=== PATIENT | male | born 1980 | race Caucasian/White ===

== ENCOUNTER 2017-11-27 11:46 | Inpatient (IN) | payer OTHER ==
[~2017-11-27] VITALS: Ht 180.3 cm; Wt 79.1 kg
[2017-11-27 11:55] VITALS: BP 129/82; PULSE 81; RESP 18; O2SAT 98
[2017-11-27] MEDS ORDERED: MIRTA15 PO (12:11)
[2017-11-27] MEDS ORDERED: BUSP10TA PO (12:11)
[2017-11-27] MEDS ORDERED: IBUP-232 PO (12:11)
[2017-11-27] MEDS ORDERED: CLON0.2T PO (12:11)
--- NOTE | 2017-11-27 12:13 | PD ---
HPI . Mandible fracture Chief Complaint: Oral / Dental Pain or Problem Time Seen by Provider: 11:53 Travel History International Travel<30 days: No Contact w/Intl Traveler<30days: No Traveled to known affect area: No History of Present Illness HPI This patient presents to us from the [facility] with a known mandibular fracture. He reports a trip and fall 3 days ago. He was seen in the intermediate and had plain films done. The plain films show a mandibular fracture. He was subsequently sent to us for further evaluation and treatment. The officers from intermediate report that they normally bring their patients to us for definitive care. The patient denies any loss of consciousness. He does complain with headache and neck pain. He also states that he had blood from his left ear at the time of the injury. He rates his pain 7/10 and states that it is exacerbated by trying to open his mouth. PFSH Past Medical History Diminished Hearing: No Kidney Stones: Yes Immunizations Current: Yes Tetanus Vaccination: Unknown Influenza Vaccination: No Past Surgical History Surgical History: No Previous Surgery Social History Alcohol Use: No (NOT IN A LONG TIME ) Tobacco Use: No (QUIT 65 DAYS AGO ) Substance Use: No (DENIES ) Allergies-Medications (Allergen,Severity, Reaction): Coded Allergies: No Known Drug Allergies (Verified Allergy, Unknown, 11/27/17) Reported Meds & Prescriptions Reported Meds & Active Scripts Active Reported Ibuprofen 600 Mg Tab 600 Mg PO BID PRN Mirtazapine 15 Mg Tab 15 Mg PO DAILY Clonidine (Clonidine HCl) 0.2 Mg Tab 0.2 Mg PO DAILY Buspirone (Buspirone HCl) 10 Mg Tab 10 Mg PO BID Review of Systems Except as stated in HPI: all other systems reviewed are Neg Physical Exam Narrative GENERAL: Awake and alert and in no acute distress. SKIN: Warm and dry. HEAD: Normocephalic. There is swelling to the left side of his face. EYES: Pupils are equal. Extraocular movements are intact. ENT: No blood or CSF in the left EAC. NECK: Normal range of motion. Diffuse tenderness. CARDIOVASCULAR: Regular rate and rhythm. RESPIRATORY: Nonlabored respirations. MUSCULOSKELETAL: Atraumatic. NEUROLOGICAL: Nonfocal. PSYCHIATRIC: Appropriate mood and affect. Data Data Last Documented VS Vital Signs Date Time Temp Pulse Resp B/P (MAP) Pulse Ox O2 Delivery O2 Flow Rate FiO2 11/27/17 11:55 81 18 129/82 (98) [address] Brain W/O Iv Contrast(Rout) (11/27/17 11:58) Ct Cerv Spine W/O Contrast (11/27/17 11:58) Ct Facial Bones W/O Iv Cont (11/27/17 11:58) Electrocardiogram (11/27/17 ) Basic Metabolic Panel (Bmp) (11/27/17 12:13) Complete Blood Count With Diff (11/27/17 12:13) Act Partial Throm Time (Ptt) (11/27/17 12:13) Prothrombin Time / Inr (Pt) (11/27/17 12:13) Urinalysis - C+S If Indicated (11/27/17 12:13) Chest, Pa & Lat (11/27/17 12:13) Consult Oral, Facial Surgery (11/27/17 ) (Hub Use Only)Inp Phy Cons/Ref (11/27/17 ) Labs Laboratory Tests Test 11/27/17 13:05 11/27/17 14:00 White Blood Count 10.1 TH/MM3 Red Blood Count 4.85 MIL/MM3 Hemoglobin 14.4 GM/DL Hematocrit 42.4 % Mean Corpuscular Volume 87.4 FL Mean Corpuscular Hemoglobin 29.7 PG Mean Corpuscular Hemoglobin Concent 33.9 % Red Cell Distribution Width 14.0 % Platelet Count 217 TH/MM3 Mean Platelet Volume 7.9 FL Neutrophils (%) (Auto) 60.4 % Lymphocytes (%) (Auto) 28.3 % Monocytes (%) (Auto) 9.9 % Eosinophils (%) (Auto) 1.2 % Basophils (%) (Auto) 0.2 % Neutrophils # (Auto) 6.1 TH/MM3 Lymphocytes # (Auto) 2.9 TH/MM3 Monocytes # (Auto) 1.0 TH/MM3 Eosinophils # (Auto) 0.1 TH/MM3 Basophils # (Auto) 0.0 TH/MM3 CBC Comment DIFF FINAL Differential Comment Prothrombin Time 10.2 SEC Prothromb Time International Ratio 1.0 RATIO Activated Partial Thromboplast Time 25.2 SEC Blood Urea Nitrogen 7 MG/DL Creatinine 0.83 MG/DL Random Glucose 96 MG/DL Calcium Level 9.0 MG/DL Sodium Level 139 MEQ/L Potassium Level 3.8 MEQ/L Chloride Level 103 MEQ/L Carbon Dioxide Level 29.4 MEQ/L Anion Gap 7 MEQ/L Estimat Glomerular Filtration Rate 104 ML/MIN Urine Color YELLOW Urine Turbidity CLEAR Urine pH 6.0 Urine Specific [place] 1.022 Urine Protein TRACE mg/dL Urine Glucose (UA) NEG mg/dL Urine Ketones NEG mg/dL Urine Occult Blood NEG Urine Nitrite NEG Urine Bilirubin NEG Urine Urobilinogen 2.0 MG/DL Urine Leukocyte Esterase NEG Urine RBC 8 /hpf Urine WBC 4 /hpf Urine Mucus FEW /lpf Microscopic Urinalysis Comment CULT NOT INDICATED MDM Medical Decision Making Medical Screen Exam Complete: Yes Emergency Medical Condition: Yes Differential Diagnosis Differential diagnosis of facial trauma includes but is not limited to soft tissue contusion, abrasions, laceration, nasal fracture, orbital fracture, zygomatic fracture Narrative Course This patient presents from the intermediate with a known left mandibular fracture. I have ordered a CT of his head, face and neck. I anticipate admission to the medicine service with a craniofacial consultation. Last Impressions Chest X-Ray 11/27/17 1213 Signed Impressions: Service Date/Time: Monday, November 27, 2017 13:23 - CONCLUSION: No acute disease. Juancarlos Archibald MD FACR Maxillofacial CT 11/27/17 2200 Signed Impressions: Service Date/Time: Monday, November 27, 2017 12:52 - CONCLUSION: Minimally displaced fractures of the left mandible. Neel Gómez MD Head CT 11/27/17 4126 Signed Impressions: Service Date/Time: Monday, November 27, 2017 12:52 - CONCLUSION: Normal examination for a patient of this age. Alexis Luna MD Cervical Spine CT 11/27/17 2664 Signed Impressions: Service Date/Time: Monday, November 27, 2017 12:52 - CONCLUSION: No acute bony injury in the cervical spine Neel Gómez MD The case was discussed with Dr. De La Vega who will plan to take the patient to the operating room tomorrow. He asked that the patient be made n.p.o. after midnight and that consent be obtained for surgery tomorrow. Physician Communication Physician Communication Dr. De La Vega and Dr. Marlo Solares Diagnosis Primary Impression: Fracture of left mandibular angle Qualified Codes: S02.652A - Fracture of angle of left mandible, initial encounter for closed fracture Admitting Information Admitting Physician Requests: Observation Condition: Stable Antonia Romeo MD November 27, 2017 12:13
--- NOTE | 2017-11-27 13:03 | RADRPT ---
EXAM DATE/TIME: 11/27/2017 12:52 [facility] COMPARISON: No previous studies available for comparison. INDICATIONS : Slip and fall four days ago. RADIATION DOSE: 31.12 CTDIvol (mGy) MEDICAL HISTORY : None SURGICAL HISTORY : None. ENCOUNTER: Initial ACUITY: 4 - 6 days PAIN SCALE: 3/10 LOCATION: cranial TECHNIQUE: Multiple contiguous axial images were obtained of the head. Using automated exposure control and adj ustment of the mA and/or kV according to patient size, radiation dose was kept as low as reasonably a chievable to obtain optimal diagnostic quality images. DICOM format image data is available electro nically for review and comparison. FINDINGS: CEREBRUM: The ventricles are normal for age. No evidence of midline shift, mass lesion, hemorrhage or acute in farction. No extra-axial fluid collections are seen. POSTERIOR FOSSA: The cerebellum and brainstem are intact. The 4th ventricle is midline. The cerebellopontine angle i s unremarkable. EXTRACRANIAL: The visualized portion of the orbits is intact. SKULL: The calvaria is intact. No evidence of skull fracture. CONCLUSION: Normal examination for a patient of this age. Alexis Luna MD on November 27, 2017 at 13:01 Board Certified Radiologist. This report was verified electronically.
[2017-11-27 13:21] LABS: AUTOMATED NEUTROPHIL # 6.1 TH/MM3 (1.8-7.7); BASOPHIL % 0.2 % (0.0-2.0); EOSINOPHIL # 0.1 TH/MM3 (0-0.4); EOSINOPHIL % 1.2 % (0.0-4.0); HEMATOCRIT 42.4 % (39.0-51.0); HEMOGLOBIN 14.4 GM/DL (13.0-17.0); LYMPH % 28.3 % (9.0-44.0); LYMPHOCYTE # 2.9 TH/MM3 (1.0-4.8); MEAN CELL VOLUME 87.4 FL (80.0-100.0); MEAN CORPUSCULAR HEMOGLOBIN 29.7 PG (27.0-34.0); MEAN CORPUSCULAR HGB CONC 33.9 % (32.0-36.0); MEAN PLATELET VOLUME 7.9 FL (7.0-11.0); MONO % 9.9 % (0.0-8.0); NEUT % 60.4 % (16.0-70.0); PLATELET COUNT 217 TH/MM3 (150-450); RED BLOOD COUNT 4.85 MIL/MM3 (4.50-5.90); WHITE BLOOD COUNT 10.1 TH/MM3 (4.0-11.0)
--- NOTE | 2017-11-27 13:25 | RADRPT ---
EXAM DATE/TIME: 11/27/2017 12:52 [facility] COMPARISON: No previous studies available for comparison. INDICATIONS : Trauma, fall four days ago. RADIATION DOSE: 18.20 CTDIvol (mGy) MEDICAL HISTORY : None SURGICAL HISTORY : None. ENCOUNTER: Initial ACUITY: 4 - 6 days PAIN SCALE: 3/10 LOCATION: neck TECHNIQUE: Volumetric scanning of the cervical spine was performed. Multiplanar reconstructions in the sagittal, coronal and oblique axial planes were performed. Using automated exposure control and adjustment o f the mA and/or kV according to patient size, radiation dose was kept as low as reasonably achievable to obtain optimal diagnostic quality images. DICOM format image data is available electronically f or review and comparison. FINDINGS: Cervical spine alignment is satisfactory. There is no evidence of cervical spine fracture. There is s light degenerative change with mild to space narrowing and endplate osteophytes formation at C5-6. No significant bony canal or foraminal compromise is present. There is no evidence of paraspinal hemato ma. There is separation of the tip of the spinous process of T1 from the remainder of the spinous pro cess, however this appears developmental or chronic. CONCLUSION: No acute bony injury in the cervical spine Neel Gómez MD on November 27, 2017 at 13:20 Board Certified Radiologist. This report was verified electronically.
--- NOTE | 2017-11-27 13:29 | RADRPT ---
EXAM DATE/TIME: 11/27/2017 12:52 [facility] COMPARISON: No previous studies available for comparison. INDICATIONS : Trauma, fall four days ago. RADIATION DOSE: 65.11 CTDIvol (mGy) MEDICAL HISTORY : None SURGICAL HISTORY : None. ENCOUNTER: Initial ACUITY: 4 - 6 days PAIN SCORE: 6/10 LOCATION: jaw TECHNIQUE: Volumetric scanning of the facial bones was performed. Using automated exposure control and adjustme nt of the mA and/or kV according to patient size, radiation dose was kept as low as reasonably achiev able to obtain optimal diagnostic quality images. DICOM format image data is available electronicall y for review and comparison. FINDINGS: The visualized skull is intact. The orbits are symmetric and intact. The maxilla is intact throughout . Nasal bone and maxillary spine are intact. The left mandible is fractured with minimally displaced oblique fractures through the left anterior b tim of the mandible and the angled region of the mandible. The right hemimandible is intact. The temp oromandibular joints are intact. CONCLUSION: Minimally displaced fractures of the left mandible. Neel Gómez MD on November 27, 2017 at 13:23 Board Certified Radiologist. This report was verified electronically.
[2017-11-27 13:30] LABS: PROTHROMBIN TIME - PATIENT 10.2 SEC (9.8-11.6)
--- NOTE | 2017-11-27 13:41 | RADRPT ---
EXAM DATE/TIME: 11/27/2017 13:23 [facility] COMPARISON: No previous studies available for comparison. INDICATIONS : Trauma. Fall four days ago. MEDICAL HISTORY : None. SURGICAL HISTORY : None. ENCOUNTER: Initial ACUITY: 4 - 6 days PAIN SCORE: 0/10 LOCATION: Bilateral chest FINDINGS: PA and lateral views of the chest demonstrate the lungs to be symmetrically aerated without evidence of mass, infiltrate or effusion. The cardiomediastinal contours are unremarkable. Osseous structure s are intact. CONCLUSION: No acute disease. Juancarlos Archbiald MD FACR on November 27, 2017 at 13:39 Board Certified Radiologist. This report was verified electronically.
[2017-11-27 13:45] LABS: BICARBONATE 29.4 MEQ/L (21.0-32.0); CREATININE 0.83 MG/DL (0.60-1.30)
[2017-11-27 14:40] LABS: BILIRUBIN, URINE NEG (NEG); BLOOD, URINE NEG (NEG); GLUCOSE,URINE NEG (NEG); KETONE, URINE NEG (NEG); MUCUS URINE FEW /lpf (OCC); NITRITE,URINE NEG (NEG); URINE COLOR YELLOW (YELLW/STRAW); URINE LEUKOCYTE ESTERASE NEG (NEG)
[2017-11-27] MEDS ORDERED: ACETAMINOPHEN 325 MG TAB PO PRN (15:15)
[2017-11-27] MEDS ORDERED: NALOXONE HCL 0.4 MG/ML AMP IV PUSH PRN (15:15)
[2017-11-27] MEDS ORDERED: SODIUM CHLORIDE 0.9% FLUSH 10 ML FLUSH IV FLUSH PRN (15:15)
[2017-11-27] MEDS ORDERED: ONDANSETRON HCL 4 MG/2 ML VIAL IVP PRN (15:15)
[2017-11-27] MEDS ORDERED: SENNOSIDES 8.6 MG TAB PO PRN (15:15)
--- NOTE | 2017-11-27 15:41 | HHI.HP ---
[facility] Primary Care Physician No Primary Care Physician Admission Diagnosis left mandibular fx Diagnoses: (1) Fracture of left mandibular angle Travel History International Travel<30 Days: No Contact w/Intl Traveler <30 Da: No Traveled to Known Affected Are: No History of Present Illness 37-year-old male with history of nephrolithiasis presents to our ER following a slip and fall that occurred 4 days ago. Since then he has had swelling of his left face and a difficult time opening his mouth or chewing. ER workup reveals a fracture of the left mandible with minimal displacement. He states that he was wearing boots which lost traction causing him to slip and fall and he hit his left face onto a shelf with his full body weight on the way down. He denies loss of consciousness but has difficulty remembering specifics surrounding the incident. He denies that anybody attacked him or hit him. Review of Systems Constitutional: DENIES: Fatigue, Fever, Weight gain, Weight loss, Chills Eyes: DENIES: Blurred vision, Diplopia, Eye inflammation, Eye pain, Vision loss Ears, nose, mouth, throat: DENIES: Tinnitus, Hearing loss, Vertigo, Nasal discharge, Oral lesions, Ear Pain Respiratory: DENIES: Apneas, Cough, Snoring, Wheezing, Hemoptysis Cardiovascular: DENIES: Chest pain, Palpitations, Syncope, Dyspnea on Exertion Gastrointestinal: DENIES: Abdominal pain, Black stools, Bloody stools, Constipation, Diarrhea, Nausea, Vomiting Genitourinary: DENIES: Hematuria, Dysuria Musculoskeletal: COMPLAINS OF: Stiffness, Joint Swelling, DENIES: Joint pain, Muscle aches Neurologic: DENIES: Abnormal gait, Headache, Localized weakness, Seizures Psychiatric: DENIES: Anxiety, Confusion, Mood changes, Depression Past Family Social History Past Medical History Nephrolithiasis, deafness Past Surgical History Denies any surgeries Allergies: Coded Allergies: No Known Drug Allergies (Verified Allergy, Unknown, 11/27/17) Family History Denies any significant family history Social History Quit smoking 6 weeks ago, denies alcohol use Physical Exam Vital Signs Vital Signs Date Time Temp Pulse Resp B/P (MAP) Pulse Ox O2 Delivery O2 Flow Rate FiO2 5/7/18 11:55 81 18 129/82 (98) 98 Physical Exam GENERAL: This is a well-nourished, well-developed patient, in no apparent distress. SKIN: No rashes, ecchymoses or lesions. Cool and dry. HEAD: Atraumatic. Normocephalic. No temporal or scalp tenderness. No lacerations. HEENT: Swelling of left mandible with extension to left cheek, no skin trauma, minimal jaw movement (painful). No nasal or occular trauma present. EYES: Pupils equal round and reactive. Extraocular motions intact. No scleral icterus. No injection or drainage. ENT: Nose without bleeding, purulent drainage or septal hematoma. Throat without erythema, tonsillar hypertrophy or exudate. Uvula midline. Airway patent. NECK: Trachea midline. No JVD or lymphadenopathy. Supple, nontender, no meningeal signs. CARDIOVASCULAR: Regular rate and rhythm without murmurs, gallops, or rubs. RESPIRATORY: Clear to auscultation. Breath sounds equal bilaterally. No wheezes , rales, or rhonchi. GASTROINTESTINAL: Abdomen soft, non-tender, nondistended. No hepato-splenomegaly , or palpable masses. No guarding. MUSCULOSKELETAL: Extremities without clubbing, cyanosis, or edema. No joint tenderness, effusion, or edema noted. No calf tenderness. Negative Homans sign bilaterally. NEUROLOGICAL: Awake and alert. Cranial nerves II through XII intact. Motor and sensory grossly within normal limits. Five out of 5 muscle strength in all muscle groups. Normal speech. Laboratory Laboratory Tests Test 11/27/17 13:05 11/27/17 14:00 White Blood Count 10.1 Red Blood Count 4.85 Hemoglobin 14.4 Hematocrit 42.4 Mean Corpuscular Volume 87.4 Mean Corpuscular Hemoglobin 29.7 Mean Corpuscular Hemoglobin Concent 33.9 Red Cell Distribution Width 14.0 Platelet Count 217 Mean Platelet Volume 7.9 Neutrophils (%) (Auto) 60.4 Lymphocytes (%) (Auto) 28.3 Monocytes (%) (Auto) 9.9 Eosinophils (%) (Auto) 1.2 Basophils (%) (Auto) 0.2 Neutrophils # (Auto) 6.1 Lymphocytes # (Auto) 2.9 Monocytes # (Auto) 1.0 Eosinophils # (Auto) 0.1 Basophils # (Auto) 0.0 CBC Comment DIFF FINAL Differential Comment Prothrombin Time 10.2 Prothromb Time International Ratio 1.0 Activated Partial Thromboplast Time 25.2 Blood Urea Nitrogen 7 Creatinine 0.83 Random Glucose 96 Calcium Level 9.0 Sodium Level 139 Potassium Level 3.8 Chloride Level 103 Carbon Dioxide Level 29.4 Anion Gap 7 Estimat Glomerular Filtration Rate 104 Urine Color YELLOW Urine Turbidity CLEAR Urine pH 6.0 Urine Specific [place] 1.022 Urine Protein TRACE Urine Glucose (UA) NEG Urine Ketones NEG Urine Occult Blood NEG Urine Nitrite NEG Urine Bilirubin NEG Urine Urobilinogen 2.0 Urine Leukocyte Esterase NEG Urine RBC 8 Urine WBC 4 Urine Mucus FEW Microscopic Urinalysis Comment CULT NOT INDICATED Result Diagram: 11/27/17 1305 11/27/17 1305 Caprini VTE Risk Assessment Caprini VTE Risk Assessment: No/Low Risk (score <= 1) Caprini Risk Assessment Model Point Value = 1 Point Value = 2 Point Value = 3 Point Value = 5 Age 41-60 Minor surgery BMI > 25 kg/m2 Swollen legs Varicose veins or History of unexplained or recurrent spontaneous Oral contraceptives or hormone replacement Sepsis (< 1 month) Serious lung disease, including pneumonia (< 1 month) Abnormal pulmonary function Acute myocardial infarction Congestive heart failure (< 1 month) History of inflammatory bowel disease Medical patient at bed rest Age 61-74 Arthroscopic surgery Major open surgery (> 45 min) Laparoscopic surgery (> 45 min) Malignancy Confined to bed (> 72 hours) Immobilizing plaster cast Central venous access Age >= 75 History of VTE Family history of VTE Factor V Leiden Prothrombin [id number] Lupus anticoagulant Anticardiolipin antibodies Elevated serum homocysteine Heparin-induced thrombocytopenia Other congenital or acquired thrombophilia Stroke (< 1 month) Elective arthroplasty Hip, pelvis, or leg fracture Acute spinal cord injury (< 1 month) Prophylaxis Regimen Total Risk Factor Score Risk Level Prophylaxis Regimen 0-1 Low Early ambulation 2 Moderate Order ONE of the following: *Sequential Compression Device (SCD) *Heparin 5000 units SQ BID 3-4 Higher Order ONE of the following medications: *Heparin 5000 units SQ TID *Enoxaparin/Lovenox 40 mg SQ daily (WT < 150 kg, CrCl > 30 mL/min) *Enoxaparin/Lovenox 30 mg SQ daily (WT < 150 kg, CrCl > 10-29 mL/min) *Enoxaparin/Lovenox 30 mg SQ BID (WT < 150 kg, CrCl > 30 mL/min) AND/OR *Sequential Compression Device (SCD) 5 or more Highest Order ONE of the following medications: *Heparin 5000 units SQ TID (Preferred with Epidurals) *Enoxaparin/Lovenox 40 mg SQ daily (WT < 150 kg, CrCl > 30 mL/min) *Enoxaparin/Lovenox 30 mg SQ daily (WT < 150 kg, CrCl > 10-29 mL/min) *Enoxaparin/Lovenox 30 mg SQ BID (WT < 150 kg, CrCl > 30 mL/min) AND *Sequential Compression Device (SCD) Assessment and Plan Problem List: (1) Fracture of left mandibular angle ICD Code: S02.652A - Fracture of angle of left mandible, initial encounter for closed fracture Status: Acute Assessment and Plan Left Mandibular Fracture with minimal displacement Slip and fall at [facility] Emergency room spoke with and consulted Dr. Orantes who plans to wire mandible for support Pured diet, n.p.o. after midnight [place]ert for pain h/o nephrolithiasis Last kidney stone was 6 weeks ago Currently asymptomatic h/o hearing impairment Patient was around lots of [place] He denies any major changes with his hearing loss after this fall DVT prophylaxis SCDs Physician Certification 2 Midnight Certification Type: Admission for Inpatient Services Order for Inpatient Services The services are ordered in accordance with Medicare regulations or non- Medicare payer requirements, as applicable. In the case of services not specified as inpatient-only, they are appropriately provided as inpatient services in accordance with the 2-midnight benchmark. Estimated LOS (days): 4 days is the estimated time the patient will need to remain in the hospital, assuming treatment plan goals are met and no additional complications. Post-Hospital Plan: Home Problem Qualifiers (1) Fracture of left mandibular angle: Qualified Codes: S02.652A - Fracture of angle of left mandible, initial encounter for closed fracture Norm Solares MD November 27, 2017 15:41
[2017-11-27 16:07] VITALS: BP 122/75; PULSE 74; RESP 16; O2SAT 99
[2017-11-27] MEDS: SODIUM CHLOR 0.9% 1000 ML INJ 1,000 ML IV SCH (16:10)
[2017-11-27] MEDS: ACETAMINOPHEN/HYDROcodone 325 MG/5 MG TAB PO PRN ×2 (16:27→23:03)
[2017-11-27 20:00] VITALS: BP 137/74; PULSE 94; RESP 20; TEMP 97.7; O2SAT 96
[2017-11-27] MEDS: SODIUM CHLORIDE 0.9% FLUSH 10 ML FLUSH IV FLUSH SCH (21:00)
[2017-11-28] VITALS: BP 129/92; PULSE 73; RESP 18; TEMP 97.4; O2SAT 97
[2017-11-28] MEDS ORDERED: diphenhydrAMINE HCL 25 MG CAP PO ONE (00:15)
[2017-11-28] MEDS: ACETAMINOPHEN/HYDROcodone 325 MG/5 MG TAB PO PRN ×3 (05:45→16:36)
[2017-11-28] MEDS: SODIUM CHLORIDE 0.9% FLUSH 10 ML FLUSH IV FLUSH SCH ×2 (07:44→20:14)
[2017-11-28 08:00] VITALS: BP 145/84; PULSE 76; RESP 19; TEMP 98; O2SAT 99
[2017-11-28 08:09] LABS: AUTOMATED NEUTROPHIL # 6.3 TH/MM3 (1.8-7.7); BASOPHIL % 0.3 % (0.0-2.0); EOSINOPHIL # 0.2 TH/MM3 (0-0.4); HEMATOCRIT 41.8 % (39.0-51.0); HEMOGLOBIN 14.3 GM/DL (13.0-17.0); LYMPH % 22.6 % (9.0-44.0); LYMPHOCYTE # 2.2 TH/MM3 (1.0-4.8); MEAN CELL VOLUME 86.9 FL (80.0-100.0); MEAN CORPUSCULAR HEMOGLOBIN 29.7 PG (27.0-34.0); MEAN CORPUSCULAR HGB CONC 34.2 % (32.0-36.0); MEAN PLATELET VOLUME 8.2 FL (7.0-11.0); MONO % 9.5 % (0.0-8.0); MONOCYTE # 0.9 TH/MM3 (0-0.9); NEUT % 65.6 % (16.0-70.0); PLATELET COUNT 217 TH/MM3 (150-450); RED BLOOD COUNT 4.81 MIL/MM3 (4.50-5.90); RED CELL DISTRIBUTION WIDTH 13.9 % (11.6-17.2); WHITE BLOOD COUNT 9.6 TH/MM3 (4.0-11.0)
[2017-11-28 08:44] LABS: BICARBONATE 31.3 MEQ/L (21.0-32.0); CREATININE 0.82 MG/DL (0.60-1.30)
[2017-11-28 12:00] VITALS: BP 139/93; PULSE 87; RESP 17; TEMP 97.7; O2SAT 98
[2017-11-28] MEDS ORDERED: ACETAMINOPHEN 1000 MG/100 ML 100 ML IV ONE (12:47)
[2017-11-28] MEDS ORDERED: PHENYLEPHRINE HCL 0.25% NASAL SPRAY 15 ML BTL ONE (12:47)
[2017-11-28] MEDS ORDERED: LIDOCAINE 1%/EPINEPHrine 1:100,000 SOLN 50 ML VIAL ONE (13:15)
--- NOTE | 2017-11-28 13:58 | EKG ---
Date Performed: 11/27/2017 Time Performed: 12:47:58 PTAGE: 37 years EKG: Sinus rhythm NORMAL ECG NO PREVIOUS TRACING DOCTOR: Jl Patel Interpretating Date/Time 11/28/2017 13:55:20
[2017-11-28] MEDS ORDERED: DO NOT ADM ANY ANTICOAGULANT DRUGS PRN (14:12)
[2017-11-28] MEDS ORDERED: *MEPERIDINE 25 MG INJ VIAL PERIprocedural Use ONLY ONE (14:19)
[2017-11-28] MEDS ORDERED: MIDAZOLAM HCL 2 MG/2 ML VIAL ONE (14:21)
--- NOTE | 2017-11-28 14:27 | MP ---
cc: Phil De La Vega DDS DATE OF OPERATION: 11/28/2017 PREOPERATIVE DIAGNOSES: 1. Left parasymphysis nondisplaced fracture of mandible. 2. Incomplete left angle fracture of mandible, not displaced. POSTOPERATIVE DIAGNOSES: 1. Left parasymphysis nondisplaced fracture of mandible. 2. Incomplete left angle fracture of mandible, not displaced. PROCEDURE PERFORMED: Closed reduction of fractures with use of maxillomandibular fixation with what remaining anterior teeth that he has available. SURGEON: Phil De La Vega DDS ELEVATOR TECHNICIAN: FLUIDS: 600 crystalloids. ESTIMATED BLOOD LOSS: Less than 5 mL. SPECIMENS: None. COMPLICATIONS: None. JUSTIFICATION: Mr. Schaeffer is a gentleman in the [facility] system that fell while cleaning the floor, sustained a hit to his chin. Sustained 2 nondisplaced fractures of his mandible that are closed. The patient has poor dentition with no posterior remaining teeth. Basically, he had some roots and a few remaining anterior teeth. Due to the fracture still being lined up and the angle being almost incomplete on the CT scan, and the patient occlusion, decision was made to put some wires on to lock his jaw up. Looked for the arch bar system to use. Did not have it available. I was able to get enough stabilization around the upper canine to canine, lower canine to canine to bring his teeth together. He has no posterior teeth. They are all broken off or gone. To stabilize his jaws to allow for healing purposes, arch bars were placed, 24 gauge wire used to lock down. Used 3 stabilization intermaxillary fixation wires, 24 gauges around the teeth and a small arch bar in the anterior segment. He tolerated the procedure well. He was extubated to recovery with vital signs stable. LUCIO Okeefe/JULISA , 02:00 PM , 02:26 PM
[2017-11-28] MEDS ORDERED: *morphine SULFATE 4 MG/ML PERIprocedure ONLY ONE ×3 (14:32→14:54)
[2017-11-28] MEDS: DEXT 5%-NACL 0.45% 1000 ML INJ 1,000 ML IV SCH (14:39)
[2017-11-28] MEDS: KETOROLAC TROMETHAMINE 60 MG/2 ML (IM) VIAL IM PRN ×2 (14:57→21:35)
[2017-11-28] MEDS ORDERED: ceFAZolin INJ 1,000 MG VIAL ONE (14:59)
[2017-11-28] MEDS ORDERED: SODIUM CHLORIDE 0.9% INJ 100 ML ONE (14:59)
[2017-11-28] MEDS ORDERED: *HYDROmorphone PF 0.5 MG/0.5 ML PERIprocedure ONLY ONE (15:30)
[2017-11-28] MEDS ORDERED: MORPHINE SULFATE 4 MG/ML INJ IV PRN (15:45)
[2017-11-28] MEDS: SODIUM CHLOR 0.9% 1000 ML INJ 1,000 ML IV SCH (16:41)
[2017-11-28] MEDS: ceFAZolin 1,000 MG/NS 100 ML IV SCH ×4 (16:41→23:10)
[2017-11-28 17:00] VITALS: BP 149/80; PULSE 120; RESP 17; TEMP 97.5; O2SAT 92
--- NOTE | 2017-11-28 17:45 | HHI.PR ---
Subjective Remarks sp surgical procedure pain in mandible is controlled Denies cp/sob Denies cough Objective Vitals Vital Signs Date Time Temp Pulse Resp B/P (MAP) Pulse Ox O2 Delivery O2 Flow Rate FiO2 11/28/17 15:45 98.8 81 19 141/90 (107) 96 Nasal Cannula 2 11/28/17 15:30 89 22 146/92 (110) 96 Nasal Cannula 2 11/28/17 15:15 72 13 140/86 (104) 92 Nasal Cannula 2 11/28/17 15:00 79 13 143/93 (110) 92 Nasal Cannula 2 11/28/17 14:45 83 17 140/87 (104) 94 Room Air 11/28/17 14:30 101 22 145/90 (108) 93 Room Air 11/28/17 14:15 82 13 143/89 (107) 100 Room Air 11/28/17 14:12 98.7 82 13 143/89 (107) 100 Room Air 11/28/17 12:00 97.7 87 17 139/93 (108) 98 11/28/17 08:00 98.0 76 19 145/84 (104) 99 11/28/17 00:00 97.4 73 18 129/92 (104) 97 11/27/17 20:00 97.7 94 20 137/74 (95) 96 I/O 11/27/17 11/27/17 11/27/17 11/28/17 11/28/17 11/28/17 07:00 15:00 23:00 07:00 15:00 23:00 Intake Total 480 ml 360 ml 900 ml 145 ml Output Total 600 ml 5 ml Balance 480 ml -240 ml 895 ml 145 ml Intake Oral 480 ml 360 ml 0 ml IV Total 900 ml 145 ml Output Urine Total 600 ml Estimated Blood Loss 5 ml # Voids 2 0 # Bowel Movements 0 Result Diagram: 11/28/17 0720 11/28/17 0720 Imaging Last Impressions Chest X-Ray 11/27/17 1213 Signed Impressions: Service Date/Time: Monday, November 27, 2017 13:23 - CONCLUSION: No acute disease. Juancarlos Archibald MD FACR Maxillofacial CT 11/27/17 1158 Signed Impressions: Service Date/Time: Monday, November 27, 2017 12:52 - CONCLUSION: Minimally displaced fractures of the left mandible. Neel Gómez MD Head CT 11/27/17 1158 Signed Impressions: Service Date/Time: Monday, November 27, 2017 12:52 - CONCLUSION: Normal examination for a patient of this age. Alexis Luna MD Cervical Spine CT 11/27/17 1158 Signed Impressions: Service Date/Time: Monday, November 27, 2017 12:52 - CONCLUSION: No acute bony injury in the cervical spine Neel Gómez MD Objective Remarks AAOx3 nad Clear lungs Bl S1S2 RRR, no MRG abdomen soft, nt, nd no edema in lower extremities Procedures Closed reduction of fractures with use of maxillomandibular fixation with what remaining anterior teeth that he has available. Urinary Catheter: No Vascular Central Line Catheter: No A/P Problem List: (1) Fracture of left mandibular angle ICD Code: S02.652A - Fracture of angle of left mandible, initial encounter for closed fracture Status: Acute Assessment and Plan The patient status post close reduction of fractures with use of maxillomandibular fixation with the remaining anterior teeth that he has available. Appreciate OMFS assistance. Continue pain control with [place] and IV morphine. Monitor vital signs. Supplemental oxygen to keep oxygen saturation more than 92%. DVT prophylaxis with SCDs Discharge Planning Pending axial facial surgery clearance. Anticipate discharge in a.m. Problem Qualifiers (1) Fracture of left mandibular angle: Qualified Codes: S02.652A - Fracture of angle of left mandible, initial encounter for closed fracture John Kramer MD November 28, 2017 17:45
[2017-11-28 20:00] VITALS: BP 143/78; PULSE 119; RESP 18; TEMP 97.8; O2SAT 95
[2017-11-28] MEDS: ACETAMINOPHEN/HYDROcodone 325 MG/7.5 MG TAB PO PRN (23:09)
[2017-11-29] VITALS: BP 116/73; PULSE 98; RESP 18; TEMP 97.3; O2SAT 94
[2017-11-29] MEDS: DEXT 5%-NACL 0.45% 1000 ML INJ 1,000 ML IV SCH ×2 (01:45→11:45)
[2017-11-29 04:00] VITALS: BP 124/76; PULSE 72; RESP 18; TEMP 97.8; O2SAT 96
[2017-11-29] MEDS: KETOROLAC TROMETHAMINE 60 MG/2 ML (IM) VIAL IM PRN ×2 (04:04→11:07)
[2017-11-29 08:00] VITALS: BP 128/81; PULSE 92; RESP 18; TEMP 97.4; O2SAT 92
[2017-11-29] MEDS: SODIUM CHLORIDE 0.9% FLUSH 10 ML FLUSH IV FLUSH SCH (09:00)
[2017-11-29] MEDS: ACETAMINOPHEN/HYDROcodone 325 MG/7.5 MG TAB PO PRN (09:30)
[2017-11-29] MEDS ORDERED: HYDR-3516 PO (10:33)
--- NOTE | 2017-11-29 10:36 | HHI.DCPOC ---
Discharge Care Plan Diagnosis: (1) Fracture of left mandibular angle Goals to Promote Your Health * To prevent worsening of your condition and complications * To maintain your health at the optimal level Directions to Meet Your Goals Take your medications as prescribed Follow your dietary instruction Follow activity as directed Keep your appointments as scheduled Take your immunizations and boosters as scheduled If your symptoms worsen call your PCP, if no PCP go to Urgent Care Center or Emergency Room Smoking is Dangerous to Your Health. Avoid second hand smoke Call the 24-hour hour crisis hotline for domestic abuse at John Kramer MD November 29, 2017 10:36
--- NOTE | 2017-11-29 11:59 | HHI.DS ---
Discharge Summary Admission Date November 27, 2017 at 15:05 Discharge Date: November 29, 2017 Admitting Diagnosis left mandibular fx (1) Fracture of left mandibular angle ICD Code: S02.652A - Fracture of angle of left mandible, initial encounter for closed fracture Status: Acute Procedures Closed reduction of fractures with use of maxillomandibular fixation with what remaining anterior teeth that he has available. Brief History - From Admission 37-year-old male with history of nephrolithiasis presents to our ER following a slip and fall that occurred 4 days ago. Since then he has had swelling of his left face and a difficult time opening his mouth or chewing. ER workup reveals a fracture of the left mandible with minimal displacement. He states that he was wearing boots which lost traction causing him to slip and fall and he hit his left face onto a shelf with his full body weight on the way down. He denies loss of consciousness but has difficulty remembering specifics surrounding the incident. He denies that anybody attacked him or hit him. CBC/BMP: 11/28/17 0720 11/28/17 0720 Significant Findings Laboratory Tests Test 11/27/17 13:05 11/27/17 14:00 11/28/17 07:20 Monocytes (%) (Auto) 9.9 % (0.0-8.0) 9.5 % (0.0-8.0) Monocytes # (Auto) 1.0 TH/MM3 (0-0.9) Urine RBC 8 /hpf (0-3) Urine Mucus FEW /lpf (OCC) Imaging Last Impressions Chest X-Ray 11/27/17 1213 Signed Impressions: Service Date/Time: Monday, November 27, 2017 13:23 - CONCLUSION: No acute disease. Juancarlos Archibald MD FACR Maxillofacial CT 11/27/17 6426 Signed Impressions: Service Date/Time: Monday, November 27, 2017 12:52 - CONCLUSION: Minimally displaced fractures of the left mandible. Neel Gómez MD Head CT 11/27/17 1152 Signed Impressions: Service Date/Time: Monday, November 27, 2017 12:52 - CONCLUSION: Normal examination for a patient of this age. Alexis Luna MD Cervical Spine CT 11/27/17 1158 Signed Impressions: Service Date/Time: Monday, November 27, 2017 12:52 - CONCLUSION: No acute bony injury in the cervical spine Neel Gómez MD PE at Discharge AAOx3 nad Clear lungs Bl S1S2 RRR, no MRG abdomen soft, nt, nd no edema in lower extremities Pt update on day of discharge Pain os controlled. Denies cp/sob. Dr Hagen called and spoke to RN. as per RN report Dr Hagen cleared patient for DC to [facility] in 1 week. Pt Condition on Discharge: Good Discharge Disposition: Dis to [employer] Discharge Time: <= 30 minutes Discharge Instructions DIET: Follow Instructions for: Full Liquid Diet Activities you can perform: Regular-No Restrictions Activities to Avoid: Concussion Sports, Contact Sports, Lifting/Bending, Strenuous Activity Follow up Referrals: Oral Maxillary Surgery - 1 Week with Phil De La Vega DDS New Medications: Hydrocodone-Acetaminophen (Hydrocodone-Acetaminophen) 5-325 mg Tab 1 TAB PO Q4H PRN for PAIN, #18 TAB 0 Refills Continued Medications: Buspirone (Buspirone) 10 Mg Tab 10 MG PO BID for Anxiety, TAB 0 Refills Clonidine (Clonidine) 0.2 Mg Tab 0.2 MG PO DAILY for Blood Pressure Management, #60 TAB 0 Refills Ibuprofen (Ibuprofen) 600 Mg Tab 600 MG PO BID PRN for PAIN, TAB 0 Refills Mirtazapine (Mirtazapine) 15 Mg Tab 15 MG PO DAILY@1600 for Depression Control, #30 TAB 0 Refills John Kramer MD November 29, 2017 11:59
[2017-11-29 12:00] VITALS: BP 120/87; PULSE 85; RESP 17; TEMP 97.9; O2SAT 99
[2017-11-29] MEDS ORDERED: busPIRone HCL 10 MG TAB PO SCH (12:00)
[2017-11-29] MEDS ORDERED: MIRTAZAPINE 15 MG TAB PO SCH (16:00)
== END 2017-11-29 13:39 | DRG 159 ==
LOC: NEPD 11:46 → NEDA 15:02 → OBSVTOIN 15:05 → EEVIPCON 15:05 → N07A 16:18
PROVIDERS: ADMIT Hospitalist; ATTEND Hospitalist
PROC: 0NSV35Z Reposition Left Mandible with External Fixation Device, Percutaneous Approach (ICD-10-PCS; principal; 2017-11-28 13:08)
DX: S02.652A Fracture of angle of left mandible, initial encounter for closed fracture (principal); H91.90 Unspecified hearing loss, unspecified ear; S02.66XA Fracture of symphysis of mandible, initial encounter for closed fracture; W01.0XXA Fall on same level from slipping, tripping and stumbling without subsequent striking against object, initial encounter; K08.89 Other specified disorders of teeth and supporting structures; Z65.3 Problems related to other legal circumstances; Z87.891 Personal history of nicotine dependence; Y93.E5 Activity, floor mopping and cleaning; Y92.149 Unspecified place in prison as the place of occurrence of the external cause
CPT/HCPCS: 70450; 70486; 71046; 72125; 80048; 81001; 85025; 85610; 85730; 93005; 99285; J0131; J0690; J1170; J1885; J2175; J2250; J2270; J3010; J7030